=== PATIENT | male | born 1960 | race Caucasian/White ===

== ENCOUNTER 2019-07-18 14:09 | Emergency (ER) | payer MEDICAID, OTHER ==
[~2019-07-18] VITALS: Ht 182.9 cm; Wt 93.1 kg
[2019-07-18 14:13] VITALS: BP 157/107
== END 2019-07-18 15:05 | disposition home or self-care (01) ==
LOC: ED 14:29
DX: H60.593 Other noninfective acute otitis externa, bilateral (principal); I10 Essential (primary) hypertension; Z76.0 Encounter for issue of repeat prescription
CPT/HCPCS: 99283

== ENCOUNTER 2019-11-09 22:27 | Emergency (ER) | payer MEDICAID ==
[~2019-11-09] VITALS: Ht 182.9 cm; Wt 85.9 kg
[2019-11-09] MEDS ORDERED: LISINOPRIL 20 MG TABLET PO ONE (23:00)
[2019-11-09] MEDS ORDERED: LISINOPRIL 20 MG TABLET ONE (23:11)
[2019-11-10 00:23] VITALS: BP 148/88
== END 2019-11-10 00:21 | disposition home or self-care (01) ==
LOC: ED 22:57
DX: I10 Essential (primary) hypertension (principal); Z76.0 Encounter for issue of repeat prescription; R51 Headache; R94.31 Abnormal electrocardiogram [ECG] [EKG]
CPT/HCPCS: 93005; 99283